=== PATIENT | female | born 1970 | race Caucasian/White ===

== ENCOUNTER 2022-10-16 07:19 | Day surgery (SDC) | payer MEDICAID ==
[~2022-10-16] VITALS: Ht 149.9 cm; Wt 76.5 kg
[2022-10-16] MEDS ORDERED: DIPHENHYDRAMINE INJ 50 MG/ML VIAL ONE (08:48)
[2022-10-16] MEDS ORDERED: ISOVUE-300 (IOPAMIDOL) 100 ML INFUS..BTL IV ONE (09:00)
[2022-10-16] MEDS ORDERED: NORMAL SALINE 10 ML VIAL ONE (09:00)
[2022-10-16] MEDS ORDERED: methylPREDNISolone ACETATE 40 MG/ML ONE (09:00)
[2022-10-16] MEDS ORDERED: LIDOCAINE 2%, 20 ML MDV ONE (09:00)
[2022-10-16] MEDS: fentaNYL CITRATE/PF 100 MCG/2 ML AMP ONE ×2 (10:38→10:47)
[2022-10-16] MEDS: MIDAZOLAM HCL 5 MG/5 ML VIAL ONE ×2 (10:42→10:45)
[2022-10-16 13:14] VITALS: BP_SYST 118
== END 2022-10-16 12:08 | disposition home or self-care (01) ==
LOC: SDS 07:19 → SMU 07:22 → SDS 12:08
PROVIDERS: ATTEND Internal Medicine
DX: M47.816 Spondylosis without myelopathy or radiculopathy, lumbar region (principal); M47.812 Spondylosis without myelopathy or radiculopathy, cervical region; F41.9 Anxiety disorder, unspecified; I10 Essential (primary) hypertension; E11.9 Type 2 diabetes mellitus without complications; Z20.822 Contact with and (suspected) exposure to COVID-19; Z79.84 Long term (current) use of oral hypoglycemic drugs; Z79.899 Other long term (current) drug therapy; Z85.51 Personal history of malignant neoplasm of bladder
CPT/HCPCS: 64493; 87426; 36415; J1200; J2001; J1030; J2250; J3010; Q9967; 76000